=== PATIENT | female | born 1960 | race Caucasian/White ===

== ENCOUNTER → 2021-08-20 | Outpatient (CLI) | payer SELFPAY | END | disposition home or self-care (01) | LOC: LAB SHORT 08:22 | DX: N39.0 Urinary tract infection, site not specified (principal) | CPT/HCPCS: 87077; 87086; 87186 ==

== ENCOUNTER → 2021-09-19 | Outpatient (CLI) | payer BC ==
[~2021-09-19] MED LIST: ALDACTONE25 M1 PO; FURO20 PO; GABA300 PO; LEVOTHYROXINE200 MCG PO; MYRBETRIQ25 MG PO; Prozac20 MG PO; SEMGLEE (Y100 UNIT/2 SC
[2021-09-19 17:54] LABS: Source, Urine Voided
[2021-09-19 19:11] LABS: Appearance, Urine Hazy (Clear); Bilirubin, Urine Neg (Neg); Blood, Urine 1+ (Neg); Color, Urine Amber (P-Yellow); Glucose Qualitative, Urine Neg (Neg); Ketones, Urine Neg (Neg); Leukocyte Esterase, Urine 2+ (Neg); Nitrite, Urine Neg (Neg); Protein, Urine 2+ (Neg); Urobilinogen, Urine 1+ (Normal)
[2021-09-19 19:31] LABS: Squamous Epithelial Cells Mod /hpf (Few)
[2021-09-19 19:32] LABS: Bacteria Mod /hpf; Calcium Oxalate Crystals Many /hpf
[2021-09-19 19:33] LABS: Hyaline Casts 0-2 /lpf (0-2)
== END | disposition home or self-care (01) ==
LOC: LAB 17:53 → LAB SHORT 17:53
PROVIDERS: Nurse Practitioner Family
DX: R30.0 Dysuria (principal)
CPT/HCPCS: 81001; 87086

== ENCOUNTER → 2022-08-14 | Outpatient (CLI) | payer BC ==
[~2022-08-14] MED LIST changes: +BUMETANIDE2 M6 PO; +CEPH500 PO; +KLOR-CON 1010 ME9 PO; +MIDO5 PO
[2022-08-14 17:12] LABS: Microalbumin, Urine Quant. <5.000 mg/L (0.000-20.000); Protein, Urine Quantitative 18.4 mg/dL (0.0-11.9)
== END | disposition home or self-care (01) ==
LOC: LAB 13:02 → LAB SHORT 13:02 → LAB FUT 08-11 09:10
PROVIDERS: Internal Medicine Nephrology
DX: N18.30 Chronic kidney disease, stage 3 unspecified (principal); D63.1 Anemia in chronic kidney disease; N25.81 Secondary hyperparathyroidism of renal origin; E55.9 Vitamin D deficiency, unspecified; E78.00 Pure hypercholesterolemia, unspecified; D51.8 Other vitamin B12 deficiency anemias; D52.8 Other folate deficiency anemias; D50.9 Iron deficiency anemia, unspecified; R76.9 Abnormal immunological finding in serum, unspecified; R94.5 Abnormal results of liver function studies; R94.6 Abnormal results of thyroid function studies
CPT/HCPCS: 81050; 82043; 82570; 84156

== ENCOUNTER 2022-08-15 09:51 | Inpatient (IN) | payer BC ==
[~2022-08-15] VITALS: Ht 172.7 cm; Wt 88.0 kg
[~2022-08-15 09:51] MED LIST changes: -BUMETANIDE2 M6 PO; -KLOR-CON 1010 ME9 PO; -MIDO5 PO
[2022-08-15] MEDS ORDERED: BUMETANIDE2 M6 PO (10:07)
[2022-08-15] MEDS ORDERED: KLOR-CON 1010 ME9 PO (10:07)
[2022-08-15] MEDS ORDERED: MIDO5 PO (10:08)
[2022-08-15 10:27] LABS: BASOPHILS ABSOLUTE AUTO 0.04 K/mm3 (0.00-0.23); BASOPHILS PERCENT AUTO 1 % (0-2); EOSINOPHILS ABSOLUTE AUTO 0.05 K/mm3 (0.00-0.68); EOSINOPHILS PERCENT AUTO 2 % (0-6); Hemoglobin 11.4 g/dL (11.5-16.0); IMMATURE GRAN ABSOLUTE AUTO 0.02 K/mm3 (0.00-0.10); IMMATURE GRAN PERCENT AUTO 1 % (0-1); LYMPHOCYTES ABSOLUTE AUTO 0.79 K/mm3 (0.84-5.20); LYMPHOCYTES PERCENT AUTO 23 % (21-46); MONOCYTES ABSOLUTE AUTO 0.41 K/mm3 (0.16-1.47); MONOCYTES PERCENT AUTO 12 % (4-13); Mean Corpuscular HGB 31.9 pg (26.0-34.0); Mean Corpuscular HGB Conc 33.5 g/dL (31.5-36.5); Mean Corpuscular Volume 95 fL (80-100); Mean Platelet Volume 9.1 fL (9.1-12.4); NEUTROPHILS ABSOLUTE AUTO 2.11 K/mm3 (1.96-9.15); NEUTROPHILS PERCENT AUTO 62 % (41-73); Platelet Count 71 K/mm3 (150-400); RDW Coefficient Variation 17.3 % (11.7-14.2); RDW Standard Deviation 60.1 fL (35.1-46.3); Red Blood Cell Count 3.57 M/mm3 (3.80-5.20); White Blood Cell Count 3.42 K/mm3 (4.00-11.30)
[2022-08-15 10:41] LABS: Albumin, Blood 2.1 g/dL (3.4-5.0); Albumin/Globulin Ratio 0.6 (0.8-1.8); Bilirubin, Total 1.9 mg/dL (0.1-1.0); Bun/Creatinine Ratio 29.9 (12.0-20.0); Calcium, Blood 8.8 mg/dL (8.5-10.1); Creatinine, Blood 1.34 mg/dL (0.40-1.00); Globulin, Blood 3.6 g/dL (2.2-4.0); Potassium, Blood 3.7 mmol/L (3.5-5.5); Total Protein, Blood 5.7 g/dL (6.4-8.2)
[2022-08-15 13:32] LABS: International Normalized Ratio 1.17; Prothrombin Time Results 12.2 Sec (9.7-11.5)
[2022-08-15 22:23] LABS: Influenza A, PCR NEGATIVE (NEGATIVE); Influenza B, PCR NEGATIVE (NEGATIVE); Resp Syncytial Virus, PCR NEGATIVE (NEGATIVE); SARS-Cov-2 (COVID-19) PCR, MMC NEGATIVE (NEGATIVE)
[2022-08-16 05:26] LABS: Hematocrit 32.9 % (33.0-51.0); Hemoglobin 10.9 g/dL (11.5-16.0); Mean Corpuscular HGB Conc 33.1 g/dL (31.5-36.5); Mean Corpuscular Volume 97 fL (80-100); Mean Platelet Volume 9.1 fL (9.1-12.4); Platelet Count 73 K/mm3 (150-400); RDW Coefficient Variation 17.3 % (11.7-14.2); RDW Standard Deviation 61.7 fL (35.1-46.3); Red Blood Cell Count 3.41 M/mm3 (3.80-5.20); White Blood Cell Count 3.05 K/mm3 (4.00-11.30)
[2022-08-16 06:05] LABS: Albumin, Blood 2.3 g/dL (3.4-5.0); Albumin/Globulin Ratio 0.7 (0.8-1.8); Creatinine, Blood 1.25 mg/dL (0.40-1.00); Globulin, Blood 3.1 g/dL (2.2-4.0); Magnesium, Blood 2.2 mg/dL (1.6-2.4); Potassium, Blood 3.6 mmol/L (3.5-5.5); Total Protein, Blood 5.4 g/dL (6.4-8.2)
--- NOTE | 2022-08-16 06:09 | NUR ---
PATIENT ALERT AND ORIENTED, 3LNC, NO TELE, 22 LAC, PARACENTESIS PERFORMED IN ED WITH 6 LITERS REMOVED, PLAN FOR THOROCENTESIS TODAY, TYLENOL GIVEN FOR HEADACHE, NO EVENTS OVERNIGHT
--- NOTE | 2022-08-16 18:24 | NUR ---
SHIFT SUMMARY: PT A&O X4, SLOW TO RESPOND, BUT RESPONDS APPROPIRATELY, PLEASANT AND ABLE TO FOLLOW DIRECTIONS. PT ON 4L NC SPO2 96% AND STABLE. DR. CHAVEZ ORDER A TIRATION OF OXYGEN. PT ABLE TO BE TIRATED TO 3L NC WITH CONTINOUS PULSE STABLE SPO2 AT 94%. PT SISTER STATED PT HAS A CHANGE IN MENTAION AND SLOW TO RESPOND, PT HAS TAKEN LACTOLUSE AT HOME WEEKS PRIOR TO ADMISSION. DR. CHAVEZ NOTIFED AND PT STARTED ON LACTULOSE 30GM QID. PT HAD MULTIPLE STOOLS THROUGHOUT SHIFT AND EPISODES OF NAUSEA AND VOMITING X1, POST FIRST DOSE OF LACTULOSE. PT EVALUATED BY PT, SEE PT NOTES. PT ABLE TO SIDE STEP AND PIVOT FROM BED TO RECLINER TO BSC, WITH 2 PERSON ASSIT. PT HAS DYSPNEA WITH EXTERTION. PT UP FOR 2 OUT 3 MEALS. PT IN BED WITH CALL LIGHT WITHIN REACH.
--- NOTE | 2022-08-17 04:27 | NUR ---
PATIENT ALERT AND ORIENTED, WORE CPAP ALL NIGHT, REFUSED PM LACTULOSE, MULTIPLE BOWEL MOVEMENTS, NO EVENTS OVERNIGHT
[2022-08-17 05:56] LABS: Albumin, Blood 2.7 g/dL (3.4-5.0); Anion Gap 3 mmol/L (6-16); Blood Urea Nitrogen 40 mg/dL (8-24); Bun/Creatinine Ratio 32.5 (12.0-20.0); CO2, Blood 30 mmol/L (21-32); Calcium, Blood 8.9 mg/dL (8.5-10.1); Chloride, Blood 108 mmol/L (98-108); Creatinine, Blood 1.23 mg/dL (0.40-1.00); Glomerular Filtration Rate 49 (60-); Glucose, Blood 96 mg/dL (70-99); Phosphorus, Blood 2.8 mg/dL (2.5-4.9); Potassium, Blood 3.6 mmol/L (3.5-5.5); Sodium, Blood 141 mmol/L (136-145)
--- NOTE | 2022-08-17 15:14 | NUR ---
Initial palliative care consult: Daisy is a 62 year old with a history of non alcoholic fatty liver disease, diabetes type 2, obestiy, COPD, CKD and MARILU. She was admitted on 08/15/22 with acute respiratory failure and hypoxia. She underwent a paracentesis during this admission and 6 liters of fluid was removed. She is scheduled for a thoracentesis this afternoon. Daisy lives with her sister, Beverly. They have lived together for the past 10 years or so. Beverly helps with cooking and cleaning and Daisy is able to take care of her hygiene needs mostly independently. Daisy reports that she has had a 100 pound weight loss over the past year. She has had three paracenteses, usually about every three months, however she said the last two were one month a part. Daisy is teaful at times during our conversation. She reports that she knows that she will from her liver disease. She states that she was told by her doctor that she is not a candidtate for a liver transplant. She confirms her DNR status and states that she and her sister have not discussed advanced care planning in the past. Discussed POLST/AD. She is interested in geeting two copies of these forms. She wants one for herself and one for her sister. Beverly returned to Daisy's room during our conversation. Answered questions. Beverly reports their nephew (who is a nurse) is enroute from [place] to come visit. Beverly would like some additional information about palliative care and the [place] [facility] program. Pamphlets for both of the programs given along with the POLST and AD forms to pt and her sister. Both verbalize appreciation for the information and resources. Pt leaving for thoracentesis at the end of the visit. Will plan to follow up with Daisy and her sister in the next 1-2 days to answer any questions and assist with filling out any forms if they desire to do so. Will continue to do advanced care planning, symptom management and illness education prn.
--- NOTE | 2022-08-17 18:21 | NUR ---
SHIFT SUMMARY PT IS AOX4, COOPERATIVE WITH CARE. HER SISTER HAS BEEN HERE MOST OF THE SHIFT. SHE HAD A THORACENTESIS DONE TODAY, THEY REMOVED 1 LITER AND ARE SENDING IT TO LAB. SHE C/O NAUSEA X1 AND WAS MEDICATED PER THE EMAR. SHE REFUSED A COUPLE DOSES OF LACTULOSE, STATING "I JUST NEED A BREAK TO REST". SHE HAD AT LEAST 3 LARGE, WATERY BM'S THIS SHIFT AFTER A DOSE OF ENULOSE. PALLIATIVE CARE CAME AND SPOKE WITH HER TODAY ALSO. WILL REPORT TO ONCOMING NURSE.
[2022-08-17 20:01] LABS: Lactate Dehydrogenase, Body Fl 82 U/L; Protein, Body Fluid 2.2 g/dL
--- NOTE | 2022-08-18 03:46 | NUR ---
REFRIGERATION UNIT REPAIRER SUMMARY NO ACUTE CHANGES THROUGHOUT THE NIGHT. A&OX4. PATIENT EFFECTIVELY COMMUNICATES NEEDS. VSS. MIDODRINE ADMINISTERED PER EMAR. RR EVEN AND SLIGHTLY LABORED ON 4L O2. PATIENT REPORTS LOOSE STOOLS, BUT WAS AGREEABLE TO TAKE EVENING DOSE OF ANULOSE. BED LOW AND LOCKED. CALL LIGHT WITHIN REACH. THIS RN WILL CONTINUE TO MONITOR.
[2022-08-18 06:11] LABS: Albumin, Blood 2.9 g/dL (3.4-5.0); Anion Gap 3 mmol/L (6-16); Blood Urea Nitrogen 37 mg/dL (8-24); Bun/Creatinine Ratio 27.4 (12.0-20.0); CO2, Blood 29 mmol/L (21-32); Chloride, Blood 109 mmol/L (98-108); Creatinine, Blood 1.35 mg/dL (0.40-1.00); Glomerular Filtration Rate 44 (60-); Glucose, Blood 105 mg/dL (70-99); Phosphorus, Blood 2.7 mg/dL (2.5-4.9); Potassium, Blood 3.7 mmol/L (3.5-5.5); Sodium, Blood 141 mmol/L (136-145)
[2022-08-18 07:38] LABS: Total Protein, Blood 5.3 g/dL (6.4-8.2)
--- NOTE | 2022-08-18 11:13 | NUR ---
O2 NEEDS PHYS THERAPY WORKED WITH PT THIS AM. JUST SITTING PT UP ON EDGE OF BED CAUSED PT TO BECOME HYPOXIC WITH SATS IN LOW 80%. PT IS ON CONT BI-OX. PHYS THERAPY INCREASED O2 TO 11L'S TO ACCOMMODATE PT'S O2 REQUIREMENTS TO WORK WITH PT. PT IS NOW BACK ON 4L'S LYING IN BED WITH O2 SATS HOVERING 90-94%.
--- NOTE | 2022-08-18 16:30 | NUR ---
BM PT HAD A LARGE LOOSE BM ON BSC AND INCONTINENT OF 1 LARGE LOOSE BM,
--- NOTE | 2022-08-18 19:31 | NUR ---
SHIFT SUMMARY A&O X 4. VSS. PT PARTICIPATED WITH PHYS THERAPY TODAY, SAT UP IN CHAIR THIS AFTERNOON. HAD 3 LARGE LOOSE BM'S. IS BEING DIURESED & ALBUMIN BEING GIVEN. PT IS EDEMATOUS. IS ON 4 L'S VIA N/C AND IS ON CONT BI-OX. SATS >90%. ENCOURAGED PT TO DB AND TO BREATH THROUGH HER NOSE. TENDS TO MOUTH BREATH. PLAN IS FOR SNF PLACEMENT UPON DC.
--- NOTE | 2022-08-19 05:02 | NUR ---
SHIFT SUMMARY; NO ACUTE CHANGES OVERNIGHT. THE PT IS AXO X4 AND A 2 PERSON ASSIST TO THE BSC. THE PT DOES HAVE SOME BOWEL INCONTINECE SINCE TAKING LACTULOSE. THE PT CURRENTLY HAS HER CPAP ON WITH 3.5L BLEED IN, THE PTS O2 SATS HAVE BEEN >92%. THE PT DENIES ANY SOB, PAIN, CHEST PAIN/PRESSURE OR N/V. PRESENTLY THE PT IS LAYING IN BED WITH THE BED IN THE LOWEST POSITION AND THE CALL LIGHT AT BEDSIDE.
[2022-08-19 06:24] LABS: Albumin, Blood 3.2 g/dL (3.4-5.0); Anion Gap 5 mmol/L (6-16); Blood Urea Nitrogen 38 mg/dL (8-24); CO2, Blood 28 mmol/L (21-32); Calcium, Blood 9.2 mg/dL (8.5-10.1); Chloride, Blood 109 mmol/L (98-108); Creatinine, Blood 1.46 mg/dL (0.40-1.00); Glomerular Filtration Rate 40 (60-); Glucose, Blood 126 mg/dL (70-99); Phosphorus, Blood 3.1 mg/dL (2.5-4.9); Potassium, Blood 4.1 mmol/L (3.5-5.5); Sodium, Blood 142 mmol/L (136-145)
--- NOTE | 2022-08-19 17:12 | NUR ---
PT IS A/OX3, SLOW TO RESPOND AT TIMES. PLEASANT AND COOPERATIVE. THE PT IS UP WITH ASSIST. THE PTS DESAT'S WITH MINIMAL ACTIVITY ON 4L/MIN O2. PT THAO PARACENTISIS ORDER, HOWEVER PER RADIOLOGY IT CANT BE DONE UNTIL TOMORROW DUE TO LOVENOX GIVEN THIS AM. THE PT DENIED ANY PAIN T/O THE SHIFT. PT HAD SEVERAL BM'S THIS AM AFTERNOON LACTULOSE WAS HELD. CALL LIGHT IN REACH. WILL MCONTINUE TO MONITOR AND ASSESS FOR CHANGES
--- NOTE | 2022-08-20 06:00 | NUR ---
END OF SHIFT NURSING REPORT Admitted for acute respiratory failure with hypoxia. 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 The patient however with worsening edema and abdomen feels mildly firm compared to prior. No improvement in oxygen needs and chest x-ray showing large pleural effusion. 4LNC on CPAP through the night. Plan for repeat paracentesis and thoracentesis. No acute events overnight.
[2022-08-20 06:17] LABS: Hematocrit 29.3 % (33.0-51.0); Hemoglobin 9.4 g/dL (11.5-16.0); Mean Corpuscular HGB 31.9 pg (26.0-34.0); Mean Corpuscular HGB Conc 32.1 g/dL (31.5-36.5); Mean Corpuscular Volume 99 fL (80-100); Mean Platelet Volume 9.9 fL (9.1-12.4); Platelet Count 62 K/mm3 (150-400); RDW Coefficient Variation 16.9 % (11.7-14.2); RDW Standard Deviation 61.8 fL (35.1-46.3); Red Blood Cell Count 2.95 M/mm3 (3.80-5.20); White Blood Cell Count 3.36 K/mm3 (4.00-11.30)
[2022-08-20 06:32] LABS: Albumin, Blood 2.7 g/dL (3.4-5.0); Anion Gap 2 mmol/L (6-16); Blood Urea Nitrogen 43 mg/dL (8-24); Bun/Creatinine Ratio 31.4 (12.0-20.0); CO2, Blood 30 mmol/L (21-32); Calcium, Blood 8.8 mg/dL (8.5-10.1); Chloride, Blood 108 mmol/L (98-108); Creatinine, Blood 1.37 mg/dL (0.40-1.00); Glomerular Filtration Rate 43 (60-); Glucose, Blood 106 mg/dL (70-99); Phosphorus, Blood 2.9 mg/dL (2.5-4.9); Sodium, Blood 140 mmol/L (136-145)
--- NOTE | 2022-08-20 15:00 | NUR ---
Case conferenced with Dr and RN before and after pt visit. EMR reviewed prior to my visit. Per Dr's request I met with pt to discuss goals of care and her wishes. Pt was asleep but woke easily when I entered the room and was agreeable to a visit. My coworker had met with pt and her sister earlier in the week and we reviewed the materials prior PC RN had provided, AD, POLST, [facility] program brochure. Pt expressed that she would like to manage her care at home as much as possible and expressed interest in having HH and a pleurx drain so that she did not need to come in so frequently for thoracentesis or paracentesis. She had a paracentesis earlier today and expressed that she felt some relief afterwards of abd pressure and discomfort. She declined to have the thoracentesis planned because she stated "It still hurts from the last time". We reviewed a pt education video on the pleurx drain together (12 minutes). Pt was able to stay awake and again states she would like to pursue this. I cautioned that Drs will evaluate and decide if it is appropriate for her clinical picture and that a different type of drain may be chosen by the provider. She verbalizes understanding. Time spent with pt for support and encouragement. She feels she and sister could manage a drain. She states she does not feel ready for hospice and would like HH. She would also like the support of OP [facility] contact and intervention. All of the above reported to pt's RN and
--- NOTE | 2022-08-20 16:59 | NUR ---
PT IS A/OX3, SLOW TO RESPOND AT TIMES. PLEASANT AND COOPERATIVE. THE PT CONTINUES TO REQUIRE O2 @ 4L/MIN. PT BECOMES VERY SOB WITH MINIMAL ACTIVITY. THE PT HAD A PARACENTISIS WHICH DRAINED 6.8 LITERS TODAY. PT REFUSED ORDERED THOACENTISIS. PT HAS LOW BP MIDADRINE GIVEN SCHEDULED. PT IS DUSKY IN COLOR. PALLIATIVE CARE CONSULTED WITH THE PT THIS AFTERNOON. CALL LIGHT IN REACH. WILL CONTINUE TO MONITOR AND ASSESS FOR CHANGES
--- NOTE | 2022-08-21 06:32 | NUR ---
PT SLEPT WELL DURING THE NIGHT NO C/O. ALERT AND AWAKE THIS AM. CALL LIGHT IN REACH.
[2022-08-21 08:09] LABS: Albumin, Blood 2.9 g/dL (3.4-5.0); Anion Gap 2 mmol/L (6-16); Blood Urea Nitrogen 45 mg/dL (8-24); Bun/Creatinine Ratio 29.4 (12.0-20.0); CO2, Blood 30 mmol/L (21-32); Calcium, Blood 8.8 mg/dL (8.5-10.1); Chloride, Blood 107 mmol/L (98-108); Creatinine, Blood 1.53 mg/dL (0.40-1.00); Glomerular Filtration Rate 38 (60-); Glucose, Blood 111 mg/dL (70-99); Phosphorus, Blood 3.1 mg/dL (2.5-4.9); Potassium, Blood 4.4 mmol/L (3.5-5.5); Sodium, Blood 139 mmol/L (136-145)
--- NOTE | 2022-08-21 18:37 | NUR ---
PT IS A/OX4, PLEASANT AND COOPERATIVE APPEARS WITHDRAWN SLOW TO ANSWER QUESTIONS AT TIMES. DUSKY/JAUNDICE IN COLOR. PT CONTINUES ON 4L/MIN O2 VIA NC. THE PT DESATS WITH MINIMAL ACTIVITY. THE PT DECLINED TO WORK WITH PHYSICAL THERAPIST TODAY. THIS AFTERNOON THE PT BECAME NAUSEATED AND VOMITED. PT WAS GIVEN ZOFRAN X1. PTS BP CONTINUES TO BE IN THE 90'S SYSTOLIC. DR. CHAVEZ INDCREASED PTS MIDIRDINE DOSE THIS AFTERNOON. PTS NEPHEW WAS IN TO VISIT. CALL LIGHT IN REACH. WILL CONTINUE TO MONIOTR AND ASSESS FOR CHANGES
--- NOTE | 2022-08-22 06:34 | NUR ---
SHIFT DANAY, PT RESTING IN BED, PT CALLED TO USED BED WELCH X 2. PT USING CPAP, CALL LIGHT IN REACH BED ALRM ON.
[2022-08-22 06:54] LABS: Albumin, Blood 3.4 g/dL (3.4-5.0); Anion Gap 4 mmol/L (6-16); Blood Urea Nitrogen 42 mg/dL (8-24); Bun/Creatinine Ratio 26.6 (12.0-20.0); CO2, Blood 30 mmol/L (21-32); Chloride, Blood 107 mmol/L (98-108); Creatinine, Blood 1.58 mg/dL (0.40-1.00); Glomerular Filtration Rate 37 (60-); Glucose, Blood 85 mg/dL (70-99); Potassium, Blood 4.5 mmol/L (3.5-5.5); Sodium, Blood 141 mmol/L (136-145)
--- NOTE | 2022-08-22 14:49 | NUR ---
CALL PLACED TO DR CIFUENTES TO UPDATE ON LOW PRESSURES AND DIZZINESS WITH SITTING UP,SYMPTOMS RESOLVED WITH LAYING DOWN AND PRESSURE INCREASED TO 91/53, MIDODRINE GIVEN ORDERED.
--- NOTE | 2022-08-22 18:00 | NUR ---
Case conference with pt's Bedside RN after review of EMR. Surgery consult note states pt wishes to pursue liver transplant so w/u and eval for that planned. Plan is for pt to be seen as an OP for cont. pleural and thoracic draining as needed for s/s management. I would recommend [facility] f/u for pt at home once d/c'd for improved s/s management and access to information as she seeks transplant/testing or liver, CKD, other chronic conditions progress.
--- NOTE | 2022-08-22 18:43 | NUR ---
PATIENT WITH LOW PRESSURES TODAY, MIDODRINE GIVEN SCHEDULED, DR CIFUENTES NOTIFIED OF LOW PRESSSURES AND BUMEX AND SPIRONOLACTONE HELD. PATIENT TOLERATED BREAKFAST AND LUNCH, NAUSEOUS AT DINNER, ZOFRAN GIVEN. PATIENT GETS NAUSEOUS WITH CERTAIN MEATS/SMELLS. SLOW TO SPEAK. BED IN LOW POSITION, CALL LIGHT IN REACH. CALLS APPROPRIATELY. PLAN FOR POSSIBLE SNF WHEN MEDICALLY STABLE. SPOKE WITH NEPHEW EARLIER AND HE STATES SISTER LIVES WITH HER AND IS DISCHARGING HOME TODAY FROM SURGERY 2 WEEKS AGO WITH LIFTING LIMITATIONS.
--- NOTE | 2022-08-23 02:28 | NUR ---
SHIFT SUMMERY, PT RESTING IN BED, PT DENIED ANY NEEDS. PT DENIED PAIN. PT SEEMED VERY DDWN AND SAD. ANSWERING QUESTIONS BUT NOT OFFERING ANY CONVERSATION THAT IS NOT RQUIRED, VEY SHORT ANSWERS. CALL LIGHT IN REACH.
[2022-08-23 06:11] LABS: Hematocrit 29.7 % (33.0-51.0); Hemoglobin 9.7 g/dL (11.5-16.0); Mean Corpuscular HGB 32.2 pg (26.0-34.0); Mean Corpuscular HGB Conc 32.7 g/dL (31.5-36.5); Mean Corpuscular Volume 99 fL (80-100); Mean Platelet Volume 9.4 fL (9.1-12.4); RDW Coefficient Variation 17.1 % (11.7-14.2); RDW Standard Deviation 61.7 fL (35.1-46.3); Red Blood Cell Count 3.01 M/mm3 (3.80-5.20); White Blood Cell Count 3.73 K/mm3 (4.00-11.30)
[2022-08-23 06:13] LABS: BASOPHILS ABSOLUTE AUTO 0.02 K/mm3 (0.00-0.23); BASOPHILS PERCENT AUTO 1 % (0-2); EOSINOPHILS ABSOLUTE AUTO 0.11 K/mm3 (0.00-0.68); EOSINOPHILS PERCENT AUTO 3 % (0-6); IMMATURE GRAN ABSOLUTE AUTO 0.03 K/mm3 (0.00-0.10); IMMATURE GRAN PERCENT AUTO 1 % (0-1); LYMPHOCYTES PERCENT AUTO 16 % (21-46); MONOCYTES ABSOLUTE AUTO 0.49 K/mm3 (0.16-1.47); MONOCYTES PERCENT AUTO 13 % (4-13); NEUTROPHILS ABSOLUTE AUTO 2.46 K/mm3 (1.96-9.15); NEUTROPHILS PERCENT AUTO 66 % (41-73)
[2022-08-23 06:22] LABS: Platelet Count 101 K/mm3 (150-400)
[2022-08-23 06:35] LABS: Magnesium, Blood 2.3 mg/dL (1.6-2.4)
[2022-08-23 06:43] LABS: Albumin, Blood 3.7 g/dL (3.4-5.0); Albumin/Globulin Ratio 1.9 (0.8-1.8); Bilirubin, Total 1.7 mg/dL (0.1-1.0); Bun/Creatinine Ratio 25.7 (12.0-20.0); Calcium, Blood 9.2 mg/dL (8.5-10.1); Creatinine, Blood 1.67 mg/dL (0.40-1.00); Globulin, Blood 1.9 g/dL (2.2-4.0); Potassium, Blood 4.6 mmol/L (3.5-5.5); Total Protein, Blood 5.6 g/dL (6.4-8.2)
--- NOTE | 2022-08-23 07:54 | NUR ---
CALL PLACED TO DR CIFUENTES, UPDATE ON DIMINISHED LUNGS WITH CRACKLES BILAT, O2 SAT 89% ON 4LPM, INCREASED TO 5LPM AND STILL 88-89%. AOX4, SLOW TO SPEAK, BP 95/48, LOWER EXT EDEMA CONTINUES. ORDER RECIEVED TO HOLD AM DOSES OF BUMEX AND SPIRONOLACTONE, DR WILL SEE PATIENT THIS AM AND DISCUSS WITH PATIENT POSSIBILITY OF VASOPRESSORS.
--- NOTE | 2022-08-23 09:01 | NUR ---
PATIENT TRANSFERING TO ICU, REPORT GIVEN TO [facility] ICU.
--- NOTE | 2022-08-23 09:05 | NUR ---
TRANSFER TO ICU PT BROUGHT TO ICU VIA GURNEY. SHE IS RECEIVING ALBUMIN AT THIS TIME. PT IS ALERT AND ORIENTED BUT SLOW TO RESPOND. SHE ASSISTS WITH REPOSITIONING BUT REQUIRES MODERATE ASSISTANCE. SHE WAS ON 5L NC, SPO2 83-88%. PT TRANSITIONED TO 6L HI-FLOW AND SATS INCREASED TO 92-94%. PT DENIES SOB OR ORTHOPNEA AT THIS TIME. LUNGS ARE COARSE, CRACKLES IN BASES. RR 17-22. EKG DONE. SINUS RAYRAY WITH RBBB WITH RATE 42-54. SBP 100S. PT DENIES DIZZINESS AND CP. STRONG RADIAL PULSES, FAINT PEDAL. ABDOMEN DISTENDED, SOFT, PT DENIES TENDERNESS WITH PALPATION. PT HAD 1 INCONTINENT VOID. BED IN LOW POSITION AND CALL LIGHT WITHIN REACH.
--- NOTE | 2022-08-23 10:00 | NUR ---
FAMILY NOTIFIED SISTER BHUPENDRA AND NEPHEW ANNETTE UPDATED ON TRANSFER TO ICU.
--- NOTE | 2022-08-23 15:40 | NUR ---
UPDATE PT HAS BEEN REQUESTING TO REST. SHE WAKENS EASILY TO VERBAL STIMULI. SHE REMAINS A&OX4, COOPERATIVE WITH CARE. HR REMAINS IN 40S-50S. BP TRENDING DOWN WITH MAP <60. HOSPITALIST NOTIFIED AND ORDER RECEIVED FOR LEVOPHED. LEVOPHED STARTED AT 2MCG/MIN, NOW AT 1MCG/MIN WITH MAP >65. PT DENIES PAIN OR CP. SHE REMAINS ON 6L HI-SVETA NC WITH SPO2 >93%. LUNGS ARE COARSE, CRACKLES AT BASES. SHE DENIES SOB BUT DESATS WHEN LYING FLAT OR WITH ACTIVITY. ABODMEN DISTENDED, NONTENDER. PT HAD ONE EPISODE OF NAUSEA AND HAD APPROX 150ML GREEN BILE EMESIS. MEDICATED PER MONITOR AND PT REPORTS RELIEF. PT HAD 3 INCONTINENT VOIDS. PUREWICK PLACED TO MONITOR OUTPUT. BED IN LOW POSITION, CALL LIGHT WITHIN REACH.
--- NOTE | 2022-08-23 18:01 | NUR ---
SHIFT SUMMARY PT RECEIVING LEVOPHED 1MCG/MIN. SHE HAS BEEN REQUESTING TO REST AND IS WITHDRAWN. WITH ENCOURAGEMENT SHE IS COOPERATIVE WITH CARE ALTHOUGH SHE REFUSES LACTULOSE. SHE IS ON 6L HI-SVETA NC. LUNGS ARE COARSE, CRACKLES IN BASES. SHE REPORTS DECREASED APPETITE. REFUSED LUNCH AND DINNER BUT IS DRINKING BOOST DRINK NOW. PUREWICK IN PLACE. BED IN LOW POSITION, CALL LIGHT WITHIN REACH. FAMILY AT BEDSIDE.
--- NOTE | 2022-08-23 19:15 | NUR ---
ASSUMED CARE OF PT @1900 FROM VIRY CLINTON. BEDSIDE REPORT. PT IS A&O X4. FLAT AFFECT AND SLOW TO RESPOND TO QUESTIONS. PER REPORT FROM FAMILY THIS IS HER NORMAL BASELINE. LEVOPHED 1MCG/MIN INFUSING IN RFA. IV LEEANNE 20GA PATENT W/SALINE LOCK. PT ON 6L O2 VIA HFNC. PUREWICK IN PLACE. BED IN LOW POSITION. CALL LIGHT IN REACH.
--- NOTE | 2022-08-24 01:21 | NUR ---
UPDATE SW DR MCLEOD RE:MAP <65 DESPITE INCREASE IN LEVOPHED TO 5MCG/MIN. PT ONLY HAS PERIPHERAL VASCULAR ACCESS. PER DR MCLEOD, GIVE MIDODRINE 10MG PO TID W/FIRST DOSE NOW.
[2022-08-24 03:33] LABS: BASOPHILS ABSOLUTE AUTO 0.04 K/mm3 (0.00-0.23); BASOPHILS PERCENT AUTO 1 % (0-2); EOSINOPHILS ABSOLUTE AUTO 0.09 K/mm3 (0.00-0.68); EOSINOPHILS PERCENT AUTO 2 % (0-6); Hematocrit 33.8 % (33.0-51.0); Hemoglobin 10.9 g/dL (11.5-16.0); IMMATURE GRAN ABSOLUTE AUTO 0.05 K/mm3 (0.00-0.10); IMMATURE GRAN PERCENT AUTO 1 % (0-1); LYMPHOCYTES ABSOLUTE AUTO 0.84 K/mm3 (0.84-5.20); LYMPHOCYTES PERCENT AUTO 16 % (21-46); MONOCYTES ABSOLUTE AUTO 0.64 K/mm3 (0.16-1.47); MONOCYTES PERCENT AUTO 12 % (4-13); Mean Corpuscular HGB 31.7 pg (26.0-34.0); Mean Corpuscular HGB Conc 32.2 g/dL (31.5-36.5); Mean Corpuscular Volume 98 fL (80-100); Mean Platelet Volume 9.1 fL (9.1-12.4); NEUTROPHILS PERCENT AUTO 68 % (41-73); Platelet Count 126 K/mm3 (150-400); RDW Coefficient Variation 17.2 % (11.7-14.2); RDW Standard Deviation 61.7 fL (35.1-46.3); Red Blood Cell Count 3.44 M/mm3 (3.80-5.20); White Blood Cell Count 5.26 K/mm3 (4.00-11.30)
[2022-08-24 03:55] LABS: Albumin, Blood 4.2 g/dL (3.4-5.0); Albumin/Globulin Ratio 1.8 (0.8-1.8); Bilirubin, Total 2.5 mg/dL (0.1-1.0); Bun/Creatinine Ratio 25.6 (12.0-20.0); Creatinine, Blood 1.64 mg/dL (0.40-1.00); Globulin, Blood 2.3 g/dL (2.2-4.0); Potassium, Blood 4.4 mmol/L (3.5-5.5); Total Protein, Blood 6.5 g/dL (6.4-8.2)
--- NOTE | 2022-08-24 05:43 | NUR ---
SUMMARY NEURO/PSYCH/MOBILITY: PT REMAINS A&O X4. SLOW TO RESPOND BUT ANSWERS APPROPRIATELY. FLAT AFFECT. PT COMPLAINED OF WORSENING LEFT SIDED RIB PAIN FROM PREVIOUS FALL. MEDICATED PER EMAR. PT IS ABLE TO MAKE PURPOSEFUL MOVEMENTS W/ALL EXTREMETIES. REPOSITIONS SELF W/MINIMAL ASSISTANCE. PERRL. RESP: PT NOT COMPLIANT W/CPAP OVERNIGHT. 6L O2 VIA HFNC OVERNIGHT. RR 18-25, SPO2 >92%. 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 PAIN TREATED AND PT REPOSITIONED, SATS INCREASED BACK INTO THE 90'S. CARDIAC: CONTINUOUS CARDIAC MONITORING. LEVOPHED TITRATED FOR MAP >65, CURRENTLY @4MCG/MIN. SINUS RHYTHM 60-70'S W/RBBB. PT DENIES CHEST PAIN OR SOB. GI: PT COMPLAINED OF NAUSEA AND WAS TREATED PER EMAR. NO VOMITING. NO BM THIS SHIFT. : PUREWICK AND ATTENDS IN PLACE. URINE OUTPUT 350MLS THIS SHIFT. SKIN: ASSESSMENT REMAINS UNCHANGED. IV ACCESS: 20GA RFA INFUSING LEVOPHED. 20GA LEEANNE PATENT W/SALINE LOCK.
--- NOTE | 2022-08-24 08:00 | NUR ---
PT A&0 X 4. PT IS SLOW TO RESPOND TO QUESTIONS AND SHE APPEARS WITHDRAWN. FLAT AFFECT NOTED. PT DENIES PAIN AT THIS TIME. ECG SHOWS SR WITH PVC'S NOTED-RATE 60'S. MAP TRENDING 60'S WITH LEVOPHED DRIP @ 4 MCG/MIN-INFUSING PERIPHERALLY. RIGHT FOREARM PIV SITE CLEAR. PLAN TO ENQUIRE ABOUT PICC PLACEMENT IF UNABLE TO TITRATE LEVOPHED OFF. LUNGS DIMINISHED R>L WITH SCATTERED CRACKLES NOTED. PT IS ORTHOPNEIC AND SOB NOTED WHEN HOB FLAT. SATS>90% ON 6 LITERS HUMIDIFIED O2. NO NOTED COUGH. PT DENIES GI DISTRESS, BUT REPORTS POOR APPETITE. SHE WAS ABLE TO TAKE HER PO MEDS WITH SIPS OF WATER WITHOUT DIFFICULTY. ABDOMINAL ASCITES NOTED. LOWER EXTREMITES WITH 2-3+ EDEMA AND 1-2+ GENERALIZED EDEMA NOTED. SKIN AND SCLERA SLIGHTLY JAUNDICED. PURE WIC IN PLACE-DRAINING DARK, YELLOW URINE.
--- NOTE | 2022-08-24 10:50 | NUR ---
PT HAS HAD SEVERAL LOOSE, BROWN STOOLS. WHEN HOB DOWN FOR ATTENDS CHANGE, SATS DROP TO 80'S. FIO2 TITRATED UP TO 8 LITERS TO MAINTAIN SATS>90%. MAP TRENDING 53-60 ON LEVOPHED @ 4 MCG/MIN DESPITE MIDODRINE. DR. CIFUENTES UPDATED. PICC LINE AND MCGILL CATH ORDERED.
[2022-08-24 11:56] LABS: Source, Urine Foley catheter
[2022-08-24 12:00] LABS: Bilirubin, Urine Neg (Neg); Blood, Urine Neg (Neg); Glucose Qualitative, Urine Neg (Neg); Ketones, Urine Neg (Neg); Leukocyte Esterase, Urine Neg (Neg); Nitrite, Urine Neg (Neg); Protein, Urine Neg (Neg); Specific Gravity, Urine 1.015 (1.003-1.022); Urobilinogen, Urine NORM (Normal)
--- NOTE | 2022-08-24 12:00 | NUR ---
PT REPORTS "MILD" RIB PAIN WITH REPOSITIONING. MAP TRENDING 60'S ON LEVOPHED @ 4 MCG/MIN. SATS>90% ON 8 LITERS HUMIDIFIED O2. PT REMAINS ORTHOPNEIC AND SOB WITH EXERTION. PT REFUSED LUNCH. MCGILL CATHETER PLACE AND U/A SENT. THE URINE APPEARED CLOUDY YELLOW. PT GAVE CONSENT FOR PICC LINE PLACEMENT.
[2022-08-24 12:01] LABS: Appearance, Urine Clear (Clear); Color, Urine Yellow (P-Yellow)
--- NOTE | 2022-08-24 14:00 | NUR ---
MAP TRENDING 80'S LEVOPHED TITRATED DOWN TO 2MCG/MIN.
--- NOTE | 2022-08-24 16:00 | NUR ---
MAP TRENDING 80'S-ATTEMPTED TO TITRATE LEVOPHED DRIP OFF AND MAP DROPPED TO 60-LEVOPHED DRIP RESTARTED @ 1 MCG/MIN. PT REMAINS AFEBRILE. ECG SHOWS SR WITH OCCAS. PVC'S. NO CHANGE IN EDEMA OR ASCITES. PT REMAINS ORTHOPNEIC AND SOB WITH EXERTION/POSITION CHANGES. PT APPETITE REMAINS POOR. MCGILL DRAINING DARK, YELLOW URINE TO BSC. CALL LIGHT WITHIN REACH.
--- NOTE | 2022-08-24 17:00 | NUR ---
PT REPORTS 5/10 "RIB" PAIN-MED WITH TYLENOL 650 MG PO-SEE EMAR. PT WAS GIVEN BED BATH, SHAMPOO, LINEN CHANGE COMPLETED. NEW MEPILEX PLACED TO COCCYX. PT NEPHEW IN FOR VISIT.
--- NOTE | 2022-08-24 17:40 | NUR ---
PT REFUSED DINNER TRAY, BUT REQUESTED JELLO-REQUEST GRANTED. MAP TRENDING LESS THAN 50 ON LEVOPHED @ 1 MCG/MIN-LEVOPHED TITRATED UP TO 2 MCG/MIN.
[2022-08-25 03:39] LABS: BASOPHILS ABSOLUTE AUTO 0.02 K/mm3 (0.00-0.23); BASOPHILS PERCENT AUTO 1 % (0-2); EOSINOPHILS PERCENT AUTO 3 % (0-6); Hematocrit 29.9 % (33.0-51.0); Hemoglobin 9.8 g/dL (11.5-16.0); IMMATURE GRAN ABSOLUTE AUTO 0.03 K/mm3 (0.00-0.10); IMMATURE GRAN PERCENT AUTO 1 % (0-1); LYMPHOCYTES ABSOLUTE AUTO 0.61 K/mm3 (0.84-5.20); LYMPHOCYTES PERCENT AUTO 16 % (21-46); MONOCYTES PERCENT AUTO 13 % (4-13); Mean Corpuscular HGB Conc 32.8 g/dL (31.5-36.5); Mean Corpuscular Volume 98 fL (80-100); Mean Platelet Volume 9.1 fL (9.1-12.4); NEUTROPHILS ABSOLUTE AUTO 2.54 K/mm3 (1.96-9.15); NEUTROPHILS PERCENT AUTO 67 % (41-73); Platelet Count 88 K/mm3 (150-400); RDW Coefficient Variation 17.2 % (11.7-14.2); RDW Standard Deviation 61.4 fL (35.1-46.3); Red Blood Cell Count 3.06 M/mm3 (3.80-5.20)
[2022-08-25 03:58] LABS: Albumin, Blood 3.9 g/dL (3.4-5.0); Albumin/Globulin Ratio 1.9 (0.8-1.8); Bilirubin, Total 2.1 mg/dL (0.1-1.0); Bun/Creatinine Ratio 27.6 (12.0-20.0); Calcium, Blood 9.3 mg/dL (8.5-10.1); Creatinine, Blood 1.52 mg/dL (0.40-1.00); Globulin, Blood 2.1 g/dL (2.2-4.0); Magnesium, Blood 2.2 mg/dL (1.6-2.4)
--- NOTE | 2022-08-25 06:29 | NUR ---
PATIENT AOX 3-4. FOLLOWS COMMANDS AND MOVES ALL EXTREMITIES. SINUS RAYRAY AND LEVOPHED NEEDED TO MAINTAIN MAP >65. 8L HFNC. MCGILL CATHETER IN PLACE AND PATENT.
--- NOTE | 2022-08-25 08:00 | NUR ---
PT A&OX4-PT APPEARS LESS WITHDRAWN AND MORE INTERACTIVE THIS AM. ECG SHOWS SR WITH RATE 60'S-OCCAS. PAC'S. LUNGS DIMINISHED THROUGH OUT. PT REMAINS ORTHOPNEIC AND APPEARS MORE DYSPNEIC/SOB WITH EXERTION. SATS DROPPED TO 83% WITH COBB CHANGE AND REPOSITONING. NO NOTED COUGH. SATS>90% ON 8 LITERS HUMIDIFIED O2. PT ABDOMINAL ASCITES APPEARS WORSE THIS AM. PT EDEMA OVERALL APPEARS SLIGHTLY WORSE TODAY WELL.PT REQUESTED "PEANUT BUTTER TOAST" REQUEST GRANTED. PT APPETITE POOR. PT REFUSED LACTULOSE AND PROTEIN LIQUID THIS AM. MCGILL TO BSD WITH DARK, YELLOW URINE OUTPUT. PT SKIN CONTINUES TO HAVE SCATTERED ABRASIONS AND SCABS FROM HER FALL AT HOME. MEPILEX TO COCCYX REMOVED AND COCCYX SLIGHTLY RED WITH TINY BRUISE NOTED, BUT NO WOUND NOTED. PT REPOSITIONED TO COMFORT ON LEFT SIDE. CALL LIGHT IN REACH.
--- NOTE | 2022-08-25 09:19 | NUR ---
PT JACOB FRAIRE PHONED AND UPDATE GIVEN.
--- NOTE | 2022-08-25 09:22 | NUR ---
HERE TO SEE PT-FULL UPDATE GIVEN.
--- NOTE | 2022-08-25 10:00 | NUR ---
MAP TRENDING 50'S-LEVOPHED TITRATED UP TO 4 MCG/MIN.
--- NOTE | 2022-08-25 12:00 | NUR ---
PT RESTS QUIETLY WHEN NOT DISTURBED. REMAINS A&OX4 AND DENIES PAIN. MAP >65 ON LEVOPHED @ 4 MCG/MIN. LUNGS REMAIN DIMINISHED. PT REMAINS ORTHOPNEIC AND SOB WITH EXERTION. SATS>90% ON 8 LITERS HUMIDIFIED O2 WITH HOB ELEVATED AND AT REST. WITH MOVEMENT AND REPOSITIONING, SATS DROP TO 80'S AND TAKE SEVERAL MINUTES TO RETURN TO THE 90'S. PT HAS HAD SEVERAL BM'S TODAY-DESPITE REFUSING LACTULOSE THIS AM. MCGILL TO BSD WITH DARK, YELLOW URINE TO BSD.
--- NOTE | 2022-08-25 14:30 | NUR ---
US OF LUNGS COMPLETE. DR. CIFUENTES UPDATED AND ORDERS GIVEN TO DISCONTINUE LOVENOX AND SCHEDULE RIGHT ULTRASOUND GUIDED THORACENTESIS FOR 08/26/22 AM. PT REPORTS 11/14 RIB PAIN-MED WITH TYLENOL-SEE EMAR.
--- NOTE | 2022-08-25 16:00 | NUR ---
PT DENIES PAIN AT THIS TIME. MAP TRENDING 60'S ON LEVOPHED @ 2 MCG/MIN. MAINTAINS SATS>90% ON 8 LITERS HUMIDIFIED O2. PT REMAINS ORTHOPNEIC AND DYSPNEIC WITH EXERTION. RIGHT ULTRASOUND GUIDED THORACENTESIS SCHEDULED FOR 08/26/22. PT APPETITE REMAINS POOR, BUT SHE DENIES NAUSEA.
--- NOTE | 2022-08-25 18:00 | NUR ---
PT REFUSED DINNER, BUT DENIES COMPLAINTS AT THIS TIME. PT RESTING QUIETLY WHEN NOT DISTURBED.
[2022-08-26 03:56] LABS: BASOPHILS ABSOLUTE AUTO 0.02 K/mm3 (0.00-0.23); BASOPHILS PERCENT AUTO 1 % (0-2); EOSINOPHILS ABSOLUTE AUTO 0.13 K/mm3 (0.00-0.68); EOSINOPHILS PERCENT AUTO 4 % (0-6); Hematocrit 29.8 % (33.0-51.0); Hemoglobin 9.8 g/dL (11.5-16.0); IMMATURE GRAN ABSOLUTE AUTO 0.03 K/mm3 (0.00-0.10); IMMATURE GRAN PERCENT AUTO 1 % (0-1); LYMPHOCYTES PERCENT AUTO 17 % (21-46); MONOCYTES ABSOLUTE AUTO 0.41 K/mm3 (0.16-1.47); MONOCYTES PERCENT AUTO 12 % (4-13); Mean Corpuscular HGB Conc 32.9 g/dL (31.5-36.5); Mean Corpuscular Volume 97 fL (80-100); Mean Platelet Volume 8.7 fL (9.1-12.4); NEUTROPHILS ABSOLUTE AUTO 2.35 K/mm3 (1.96-9.15); NEUTROPHILS PERCENT AUTO 66 % (41-73); Platelet Count 101 K/mm3 (150-400); RDW Standard Deviation 60.4 fL (35.1-46.3); Red Blood Cell Count 3.06 M/mm3 (3.80-5.20); White Blood Cell Count 3.54 K/mm3 (4.00-11.30)
[2022-08-26 04:12] LABS: Albumin, Blood 3.9 g/dL (3.4-5.0); Albumin/Globulin Ratio 1.8 (0.8-1.8); Bilirubin, Total 1.9 mg/dL (0.1-1.0); Bun/Creatinine Ratio 27.3 (12.0-20.0); Calcium, Blood 9.1 mg/dL (8.5-10.1); Creatinine, Blood 1.39 mg/dL (0.40-1.00); Globulin, Blood 2.2 g/dL (2.2-4.0); Potassium, Blood 3.8 mmol/L (3.5-5.5); Total Protein, Blood 6.1 g/dL (6.4-8.2)
--- NOTE | 2022-08-26 05:53 | NUR ---
SHIFT SUMMARY: Uneventful shift. Patient denies pain, slept well throughout the night. Attempted to wean down levophed to 1mcg/min but MAP didn't maintain above 65, so levophed is still at 2. She is on 6L NC with sats in the mid 90s. Good urine output.
--- NOTE | 2022-08-26 07:15 | NUR ---
ASSUMPTION OF CARE PT WAKENS EASILY TO VERBAL STIMULI. SHE REMAINS WITHDRAWN WITH FLAT AFFECT. SHE IS RECEIVING LEVOPHED 2MCG/MIN. SHE IS ON 6L HI-SVETA NC WITH SATS >92%. SINUS RHTYHM ON MONITOR WITH RATE 55-68. MCGILL IN PLACE AND DRAINING TO GRAVITY. BED IN LOW POSITION AND CALL LIGHT WITHIN REACH.
--- NOTE | 2022-08-26 18:31 | NUR ---
SHIFT SUMMARY LEVOPHED ON STANDBY SINCE 1699. PT IS A&OX4. SHE IS MORE TALKATIVE TODAY AND PARTICIPATING MORE IN CARE. SHE REMAINS ON 6L HI-SVETA NC. PT REMAINS ORTHOPNEIC. PT HAD THORACENTESIS DONE THIS AFTERNOON AT BEDSIDE. PT REPORTS DECREASED WORK OF BREATHING AFTERWARD. PT ATE MOST OF HER MEALS TODAY BUT CONTINUES TO HAVE DECREASED APPETITE. MCGILL PATENT AND DRAINING TO GRAVITY.
[2022-08-27 04:54] LABS: BASOPHILS ABSOLUTE AUTO 0.03 K/mm3 (0.00-0.23); BASOPHILS PERCENT AUTO 1 % (0-2); EOSINOPHILS ABSOLUTE AUTO 0.12 K/mm3 (0.00-0.68); EOSINOPHILS PERCENT AUTO 3 % (0-6); Hematocrit 30.5 % (33.0-51.0); Hemoglobin 9.9 g/dL (11.5-16.0); IMMATURE GRAN ABSOLUTE AUTO 0.01 K/mm3 (0.00-0.10); IMMATURE GRAN PERCENT AUTO 0 % (0-1); LYMPHOCYTES PERCENT AUTO 17 % (21-46); MONOCYTES ABSOLUTE AUTO 0.54 K/mm3 (0.16-1.47); MONOCYTES PERCENT AUTO 13 % (4-13); Mean Corpuscular HGB Conc 32.5 g/dL (31.5-36.5); Mean Corpuscular Volume 99 fL (80-100); NEUTROPHILS ABSOLUTE AUTO 2.69 K/mm3 (1.96-9.15); NEUTROPHILS PERCENT AUTO 66 % (41-73); Platelet Count 100 K/mm3 (150-400); RDW Standard Deviation 61.2 fL (35.1-46.3); Red Blood Cell Count 3.09 M/mm3 (3.80-5.20); White Blood Cell Count 4.09 K/mm3 (4.00-11.30)
[2022-08-27 05:17] LABS: Albumin, Blood 4.1 g/dL (3.4-5.0); Bilirubin, Total 1.9 mg/dL (0.1-1.0); Calcium, Blood 9.5 mg/dL (8.5-10.1); Creatinine, Blood 1.48 mg/dL (0.40-1.00); Total Protein, Blood 6.1 g/dL (6.4-8.2)
--- NOTE | 2022-08-27 06:45 | NUR ---
SHIFT SUMMARY NEURO: PATIENT ALERT, ORIENTED. FLAT AFFECT. DENIES PAIN. GENERALIZED WEAKNESS, BUT ABLE TO MOVE IN BED WITH MINIMAL ASSISTANCE. CARDIAC: SB/SR C BBB. HR 50-60S. LEVO INFUSING TO MAINTAIN MAP >65. ON 1-3MCG/MIN OVERNIGHT. AFEBRILE. PULM: PATIENT ON 6-8L HFNC TO MAINTAIN SPO2 >92%. DESATS WITH MINIMAL ACTIVITY. S/P RIGHT THORACENTESIS ON 08/26. PATIENT DENIES SOB. GI: NO BM OVERNIGHT. DECREASED ORAL INTAKE/POOR APPETITE. DISTENDED ABDOMEN; ASCITES. : MCGILL CATH IN PLACE; 1450CC OUT S/P IV BUMEX. PLAN TO TRANSITION TO ORAL BUMEX TODAY.
--- NOTE | 2022-08-27 09:12 | NUR ---
ASSUMED CARE REPORT FROM IVAN CLINTON AT 0700. PT RESTING IN BED SLEEPING MOST OF AM. WAKES AT 0830. REPORTS POOR SLEEP LAST NOC. DENIES SOB OR OTHER COMPLAINTS. SLOW TO RESPOND, FLAT AFFECT. A&OX 3. ANSWERS QUESTIONS APPROPRIATELY, FOLLOWS COMMANDS. LUNGS DIM IN BASES. 8L VIA HFNC. SB ON MONITOR, RATE 55-65. LEVO FOR MAP> 65. MCGILL PATENT, DRAINING CLEAR YELLOW URINE TO GRAVITY. 1+ EDEMA TO BLE. PICC TO LUE, DRESSING C/D/I. WILL CONTINUE TO MONITOR.
--- NOTE | 2022-08-27 14:45 | NUR ---
Attempted to visit with Daisy this afternoon. She is currently sleeping soundly. Nursing reports that pt expressed that she did not sleep well last night. Will plan to allow her to rest at this time. Daisy was told this morning that she is not a liver transplant candidate. Will plan to attempt to revisit at a better time to discuss her goals moving forward. If she is not a candidate for a TIPS procedure she may likely benefit from a pleurx drain to prevent repeated procedures for paracentesis and thoracentecis. Will plan to continue disease process education and advanced care planning when Daisy is more awake and alert.
--- NOTE | 2022-08-27 17:45 | NUR ---
Received call from Pt's Primary OZ Murray reporting Pt is awake and family is at bedside. Pt resting in bed and is A&OX3. Brief review of plan of care. Engaged in therapeutic discussion regarding goals of care. Discussed considering comfort care and hospice. Educated on comfort care and hospice philosophy. Offered therapeutic listening and answered questions. Pt and family reports plan to discuss further amongst their self and other family members before making a decision. Pt and family express appreciation and report no other concerns at this time. Spoke with Primary OZ Murray and discussed case. Palliative Care will remain available
--- NOTE | 2022-08-27 17:45 | NUR ---
SHIFT SUMMARY PT STATUS CHANGED TO PCU THIS SHIFT. LEVOPHED TITRATED OFF. MAP GOAL >55. SB, RATE 55-65. PT HAD ONE ASYMPTOMATIC EPISODE OF BRADYCARDIA c RATE 35, 6 SEC. LUNGS DIM, SHALLOW RESP. 6L VIA HFNC. ABD ROUND, SOFT, NON TENDER. BT X 4. PT DENIES SOB OR ABD PAIN. SLEPT MOST OF SHIFT. MCGILL PATENT, DRAINING GERTRUDE URINE TO GRAVITY. 1+ EDEMA TO BLE. SKIN JAUNDICE. PT ABLE TO ASSIST c TURNS. FAMILY AT BEDSIDE. PALLIATIVE CARE DISCUSSED GOALS OF TREATMENT. PT AND FAMILY CONSIDERING COMFORT. WILL CONTINUE TO MONITOR UNTIL REPORT TO ONCOMING NURSE.
--- NOTE | 2022-08-27 20:52 | NUR ---
ASSUMED CARE. AOX3, SLOW TO REPOND, FLAT AFFECT. FOLLOWS DIRECTIONS AND ABLE TO MAKE NEEDS KNOWN. LUNGS WITH CRACKLES IN THE BASES, SOB WITH MOVEMENT, 6L VIA HFNC. SHALLOW RESP. SINUS RAYRAY RATE 55-59. MAP 60-65 CURRENTLY. ORDER TO KEEP GREATER THAN 55. ABD ROUND, NON-TENDER, BT X 4, DENIES BM TODAY. DR. MELCHOR TO BEDSIDE. ORDER FOR MIRLAX DAILY. +2 PITTING EDEMA. PT REQUEST BREAK FROM SCD'S. SKIN JAUDICE, NO BREAKDOWN. REPOSITIONED. MCGILL DRAINING TO GRAVITY, CLEAR YELLOW.
[2022-08-28 03:57] LABS: BASOPHILS ABSOLUTE AUTO 0.03 K/mm3 (0.00-0.23); BASOPHILS PERCENT AUTO 1 % (0-2); EOSINOPHILS ABSOLUTE AUTO 0.13 K/mm3 (0.00-0.68); EOSINOPHILS PERCENT AUTO 4 % (0-6); Hematocrit 29.6 % (33.0-51.0); Hemoglobin 9.5 g/dL (11.5-16.0); IMMATURE GRAN ABSOLUTE AUTO 0.02 K/mm3 (0.00-0.10); IMMATURE GRAN PERCENT AUTO 1 % (0-1); LYMPHOCYTES ABSOLUTE AUTO 0.52 K/mm3 (0.84-5.20); LYMPHOCYTES PERCENT AUTO 15 % (21-46); MONOCYTES ABSOLUTE AUTO 0.41 K/mm3 (0.16-1.47); MONOCYTES PERCENT AUTO 12 % (4-13); Mean Corpuscular HGB 31.8 pg (26.0-34.0); Mean Corpuscular HGB Conc 32.1 g/dL (31.5-36.5); Mean Corpuscular Volume 99 fL (80-100); Mean Platelet Volume 9.1 fL (9.1-12.4); NEUTROPHILS ABSOLUTE AUTO 2.34 K/mm3 (1.96-9.15); NEUTROPHILS PERCENT AUTO 68 % (41-73); Platelet Count 92 K/mm3 (150-400); RDW Coefficient Variation 16.9 % (11.7-14.2); RDW Standard Deviation 61.2 fL (35.1-46.3); Red Blood Cell Count 2.99 M/mm3 (3.80-5.20); White Blood Cell Count 3.45 K/mm3 (4.00-11.30)
[2022-08-28 04:13] LABS: Albumin, Blood 4.2 g/dL (3.4-5.0); Albumin/Globulin Ratio 2.1 (0.8-1.8); Creatinine, Blood 1.48 mg/dL (0.40-1.00); Potassium, Blood 4.1 mmol/L (3.5-5.5); Total Protein, Blood 6.2 g/dL (6.4-8.2)
--- NOTE | 2022-08-28 05:47 | NUR ---
SHIFT SUMMARY. PT REMAINS OFF ALL PRESSORS. CONTINUES ON MID[place] TID. MAPS HAVE REMAINED >55. PULSE REMAINS SINUS RAYRAY IN THE 50'S. 1-2+ PITTING EDEMA TO BLE. LUNGS HAVE CRACKLES IN LOWER BASES. SHALLOW BREATHING AT TIMES, AND DYSPNEA WITH MOVEMENT. CONTINUES ON 6L HFNC WITH SATS >92%. ABD MILD DISTENSION, BT HYPOACTIVE, AND NO BM. SHE IS TO START MIRLAX TODAY. JAUNDICE, WITH SCATTERED BRUISING, NO BREAKDOWN.MCGILL REMAINS IN PLACE AND PATENT. 725 OUTPUT. SLEPT FOR FEW HOURS T/O THE NIGHT.
--- NOTE | 2022-08-28 09:58 | NUR ---
Spoke with RN Caremanclarke Cook prior to Pt visit reporting Pt and family has elected home with hospice services. Pt resting in bed and appears weak and lethargic. Pt's brother and sister in law at bedside. Offered therapeutic listening as Pt and family reporting wanting hospice services. Discussed the option to consider PleurX drain placed in the abdomen for comfort. Pt and family would like to pursue this option. No other concerns reported at this time. Spoke with Dr Edward and discussed case. Dr Edward in agreement with PleurX drain for abdomen and will consult surgery. Palliative Care will remain available
--- NOTE | 2022-08-28 17:06 | NUR ---
SHIFT SUMMARY NO ACUTE CHANGES THIS SHIFT. PT HAS REMAINED AWAKE, ALERT, AND ORIENTED. PT IS SLOW TO RESPOND AT TIMES, BUT ANSWERS APPROPRIATELY. PT HAS DENIED PAIN OR DISCOMFORT. VITAL SIGNS HAVE REMAINED STABLE. PT REMAINS ON 6L O2 NC. PICC TO JUDY SALINE LOCKED. IV TO RFA SALINE LOCKED. PT TAKING IN PO INTAKE WELL, BUT HAS POOR APPETITE. ABD REMAINS DISTENDED. MCGILL TEMP PROBE REMAINS IN PLACE WITH YELLOW OUTPUT NOTED. PT ABLE TO SHIFT SELF IN BED FOR COMFORT, BUT DECLINED TO WORK WITH PHYSICAL THERAPY THIS SHIFT. PLANS FOR PT TO HAVE PLEUREX DRAIN PLACED IN THE AM. PT AND FAMILY UPDATED. WILL CONTINUE TO MONITOR AND REPORT OFF TO ONCOMING RN.
--- NOTE | 2022-08-28 20:00 | NUR ---
ASSUMED CARE PT IS A&O X4; SPO2 >92% ON 6L HFNC; MAP IN THE 60'S (MAP >55 PER ORDERS). HR IN THE 40-50'S; PT SITS IN THE 50-60'S AND WILL DIP DOWN INTO THE 40'S PER REPORT. NO C/O CP, SOB, NAUSEA, NUMBNESS, OR TINGLING. PT IS ABLE TO MAKE NEEDS KNOWN. MCGILL CATHETER PATENT AND DRAINING TO GRAVITY.
[2022-08-29 03:46] LABS: BASOPHILS ABSOLUTE AUTO 0.03 K/mm3 (0.00-0.23); BASOPHILS PERCENT AUTO 1 % (0-2); EOSINOPHILS ABSOLUTE AUTO 0.11 K/mm3 (0.00-0.68); EOSINOPHILS PERCENT AUTO 3 % (0-6); Hematocrit 29.4 % (33.0-51.0); Hemoglobin 9.6 g/dL (11.5-16.0); IMMATURE GRAN ABSOLUTE AUTO 0.02 K/mm3 (0.00-0.10); IMMATURE GRAN PERCENT AUTO 1 % (0-1); LYMPHOCYTES ABSOLUTE AUTO 0.51 K/mm3 (0.84-5.20); LYMPHOCYTES PERCENT AUTO 15 % (21-46); MONOCYTES ABSOLUTE AUTO 0.38 K/mm3 (0.16-1.47); MONOCYTES PERCENT AUTO 11 % (4-13); Mean Corpuscular HGB 32.3 pg (26.0-34.0); Mean Corpuscular HGB Conc 32.7 g/dL (31.5-36.5); Mean Corpuscular Volume 99 fL (80-100); Mean Platelet Volume 9.3 fL (9.1-12.4); NEUTROPHILS ABSOLUTE AUTO 2.47 K/mm3 (1.96-9.15); NEUTROPHILS PERCENT AUTO 70 % (41-73); Platelet Count 86 K/mm3 (150-400); RDW Coefficient Variation 17.2 % (11.7-14.2); RDW Standard Deviation 61.3 fL (35.1-46.3); Red Blood Cell Count 2.97 M/mm3 (3.80-5.20); White Blood Cell Count 3.52 K/mm3 (4.00-11.30)
[2022-08-29 04:02] LABS: Albumin, Blood 4.5 g/dL (3.4-5.0); Albumin/Globulin Ratio 2.2 (0.8-1.8); Bilirubin, Total 1.8 mg/dL (0.1-1.0); Bun/Creatinine Ratio 29.5 (12.0-20.0); Calcium, Blood 10.2 mg/dL (8.5-10.1); Creatinine, Blood 1.66 mg/dL (0.40-1.00); Potassium, Blood 4.4 mmol/L (3.5-5.5); Total Protein, Blood 6.5 g/dL (6.4-8.2)
--- NOTE | 2022-08-29 05:21 | NUR ---
SHIFT SUMMARY PT IS A&O X4; SPO2 >92% ON 6L HFNC; MAP >60; HR IN THE 50-60'S W/ OCCASIONAL DIPS INTO THE 40'S. PT DID NOT SLEEP TONIGHT PER PT. PT IS WITHDRAWN AND HAS FLAT AFFECT, BUT WAS ABLE TO GET PT TO LAUGH/PARTICIPATE IN CONVERSATION/CARE MORE WHEN TALKING ABOUT HER DOGS. MCGILL IS PATENT AND DRAINING TO GRAVITY. NO ACUTE EVENTS OVERNIGHT.
--- NOTE | 2022-08-29 10:09 | NUR ---
PLEUREX DRAIN PLACEMENT PT RETURNED TO ICU S/P PLEUREX DRAIN PLACEMENT IN THE OR. DRAIN TO RIGHT ABDOMEN IS C/D/I WITH FOAM UNDER DRAIN PIGTAIL AND OPSITE DRESSING OVER THE TOP OF PIGTAIL AND FOAM. PT DENIES PAIN OR DISCOMFORT. VITAL SIGNS STABLE. PT REMAINS ON 6L O2 NC. PT AWAKE, ALERT, AND ORIENTED. WILL CONTINUE TO MONITOR.
--- NOTE | 2022-08-29 17:20 | NUR ---
TRANSFER NOTE AND SHIFT SUMMARY PT ARRIVED TO PCU 11 WITH ALL HER BELONGINGS. PT AWAKE AND ALERT, ORIENTED X 4. ORIENTED TO ROOM, CALL LIGHT AND UNIT ROUTINES. PT SETTLED IN TO BED AND STATES SHE HAS NO NEEDS AT THIS TIME. PLEUEX CATH WNL. CALL LIGHT IN REACH, WILL CONTINUE TO MONITOR AND GIVE REPORT TO NOC SHIFT RN.
--- NOTE | 2022-08-29 23:27 | NUR ---
ASSUMPTION OF CARE 1899 THIS RN ASSUMED CARE OF PT, REPORT FROM TONYA CLINTON. PT LYING IN BED, PT IS A&O ALTHOUGH RESPONSES ARE SLOWED. PT STATES SHE IS "TIRED". VSS; BP ON SOFT SIDE AT 94/44, MAP >55. PT DENIES CP OR PRESSURE, DENIES GENERAL PAIN. PT REPORTS SOB W/EXERTION BUT AT REST "IS BREATHING OK". PT ON 4 L VIA NC SPO2 93%. PT DENIES ANY NEEDS OR CONCERNS AT THIS TIME. MCGILL CATHETER IN PLACE AND DRAINING TO GRAVITY. CALL LIGHT IN REACH
--- NOTE | 2022-08-29 23:30 | NUR ---
TRANSFER NOTE REPORT GIVEN TO OZ JUNG. PT TRANSFERRED TO MEDICAL FLOOR VIA HOSPITAL BED. PT ON 4 L O2 VIA NC. PT BELONGINGS SENT WITH PT.
--- NOTE | 2022-08-30 05:30 | NUR ---
SUMMARY: PATIENT TRANSFERED FROM PCU [facility]. NO ACUTE EVENTS AFTER ARRIVAL. PATIENT HAD PLERUX DRAIN PLACED TO R ABD YESTERDAY. DRESSING CDI. PER PROGRESS NOTES PATIENT MIGHT DC HOME WITH HOSPICE TODAY. PATIENT BP LOW. PATIENT SLOW TO RESPOND AND WITHDRAWN. REPOSTITIONED IN BED WITH PILLOWS. BED ALARM CERTIFIED EXECUTIVE CHEF LIGHT IN REACH.
[2022-08-30] MEDS ORDERED: LORA.5 PO (10:40)
[2022-08-30] MEDS ORDERED: ONDA4ODT MM (10:43)
[2022-08-30] MEDS ORDERED: DOCU100 PO (10:43)
[2022-08-30] MEDS ORDERED: MORP20L SL (10:43)
--- NOTE | 2022-08-30 11:18 | NUR ---
INDWELLING URINARY CATHETER REMOVED PER PATIENT REQUEST.
[2022-08-30] MEDS ORDERED: SPIR50 PO (11:27)
--- NOTE | 2022-08-30 12:56 | NUR ---
Pt resting stats she is crabby and wants to go home. family at bedside her ZHAO is a retired nurse and going to care for her. We reviewed the pleurex drain system and hospice care. pt to discharge at 2pm and hill to do intake. will update hill on her medications for her edema and ascieties.
--- NOTE | 2022-08-30 14:57 | NUR ---
PATIENT DISCHARGED TO HOME WITH [facility] ADMITTING TO THEIR SERVICE. PALLIATIVE RN Carlos COLLINS GAVE FAMILY EDUCATION ABOUT DRAINING PLEUR-X CATHETER. INDWELLING URINARY CATHETER D/C'D PER PT REQUEST, CITING DISCOMFORT. PICC LINE REMOVED BY Jacinda VALLES RN. O2 @ 4 L/MIN NC. OFF UNIT VIA AMBULANCE AT 1453. PATIENT DRESSED IN OWN CLOTHING. NO PERSONAL BELONGINGS LEFT BEHIND IN ROOM.
== END 2022-08-30 14:56 | disposition hospice, home (50) | DRG 432 ==
LOC: ER 09:51 → MEDS 19:26 → ICUW 19:26 → MEDS 21:06 → ICUE 08-23 09:12 → ICUW 08-25 17:05 → PCU 08-29 17:26 → MEDS 08-29 22:38
PROVIDERS: Emergency Medicine; Internal Medicine; Nurse Practitioner Acute Care; Student in an Organized Health Care Education/Training Program; ADMIT Internal Medicine
PROC: 0W9G3ZZ Drainage of Peritoneal Cavity, Percutaneous Approach (ICD-10-PCS; 2022-08-15)
PROC: 5A09357 Assistance with Respiratory Ventilation, Less than 24 Consecutive Hours, Continuous Positive Airway Pressure (ICD-10-PCS; 2022-08-16)
PROC: 0W9B3ZZ Drainage of Left Pleural Cavity, Percutaneous Approach (ICD-10-PCS; 2022-08-17)
PROC: 0W9G3ZZ Drainage of Peritoneal Cavity, Percutaneous Approach (ICD-10-PCS; 2022-08-20)
PROC: 3E033XZ Introduction of Vasopressor into Peripheral Vein, Percutaneous Approach (ICD-10-PCS; 2022-08-23)
PROC: 5A0945A Assistance with Respiratory Ventilation, 24-96 Consecutive Hours, High Flow/Velocity Cannula (ICD-10-PCS; 2022-08-23)
PROC: 02H633Z Insertion of Infusion Device into Right Atrium, Percutaneous Approach (ICD-10-PCS; principal; 2022-08-25)
PROC: 0W993ZZ Drainage of Right Pleural Cavity, Percutaneous Approach (ICD-10-PCS; 2022-08-26)
PROC: 0W9G30Z Drainage of Peritoneal Cavity with Drainage Device, Percutaneous Approach (ICD-10-PCS; 2022-08-29)
DX: K74.60 Unspecified cirrhosis of liver (principal); J96.01 Acute respiratory failure with hypoxia; J94.8 Other specified pleural conditions; R18.8 Other ascites; D61.818 Other pancytopenia; N17.9 Acute kidney failure, unspecified; J91.8 Pleural effusion in other conditions classified elsewhere; K72.90 Hepatic failure, unspecified without coma; Z51.5 Encounter for palliative care; Z66 Do not resuscitate; I35.0 Nonrheumatic aortic (valve) stenosis; N18.32 Chronic kidney disease, stage 3b; E11.22 Type 2 diabetes mellitus with diabetic chronic kidney disease; G47.33 Obstructive sleep apnea (adult) (pediatric); Z20.822 Contact with and (suspected) exposure to COVID-19; E03.9 Hypothyroidism, unspecified; K75.81 Nonalcoholic steatohepatitis (NASH); E87.70 Fluid overload, unspecified; W19.XXXA Unspecified fall, initial encounter; R16.1 Splenomegaly, not elsewhere classified; I12.9 Hypertensive chronic kidney disease with stage 1 through stage 4 chronic kidney disease, or unspecified chronic kidney disease; I27.20 Pulmonary hypertension, unspecified; E11.42 Type 2 diabetes mellitus with diabetic polyneuropathy; G70.9 Myoneural disorder, unspecified; E66.01 Morbid (severe) obesity due to excess calories; I95.89 Other hypotension; G89.29 Other chronic pain; E88.09 Other disorders of plasma-protein metabolism, not elsewhere classified; M19.90 Unspecified osteoarthritis, unspecified site; Z90.49 Acquired absence of other specified parts of digestive tract; Z90.710 Acquired absence of both cervix and uterus; Z87.891 Personal history of nicotine dependence; Z98.890 Other specified postprocedural states; Z88.8 Allergy status to other drugs, medicaments and biological substances; Z79.899 Other long term (current) drug therapy; Z88.1 Allergy status to other antibiotic agents; Z86.79 Personal history of other diseases of the circulatory system; Z68.34 Body mass index [BMI] 34.0-34.9, adult; Z91.199 Patient's noncompliance with other medical treatment and regimen due to unspecified reason
CPT/HCPCS: 0241U; 32555; 36415; 36569; 49083; 51703; 71045; 71046; 71101; 71260; 76604; 80053; 80069; 81003; 82140; 82533; 83615; 83735; 84145; 84155; 84157; 84484; 85025; 85027; 85610; 85730; 87040; 87070; 87205; 93005; 93010; 93306; 94660; 94760; 94762; 96365-59; 97110; 97162; 97530; 99285-25; A9270; C1729; C1751; C1769; J0696; J1650; J2250; J2405; J2765; J2795; J7060; P9047; Q9967